=== PATIENT | male | born 1960 | race Caucasian/White ===

== ENCOUNTER 2025-05-21 16:37 | Emergency (ER) | payer OTHER ==
[~2025-05-21] VITALS: Ht 172.7 cm; Wt 86.2 kg
[2025-05-21 16:43] VITALS: BP 142/87; RESP 18; TEMP 97.7; O2SAT 94
--- NOTE | 2025-05-21 17:04 | ED.PDOC ---
HPI Comments 65 y/o M, presents to the ED for CC of chest pain. Patient states, he has been experiencing substernal chest pain that radiates to his bilateral arms onset x2hrs [employer]. Patient describes pain to be "pressure" like in nature. Patient denies nausea, vomiting, dizziness, shortness of breath, or palpitations. No other symptoms or modifying factors are present at this time. Chief Complaint: Chest Pain Time Seen by MD: 17:00 Reviewed Notes: Nurses Notes, Medications, Allergies Allergies: Coded Allergies: NO KNOWN ALLERGIES (Unverified , 05/21/25) Information Source: Patient Mode of Arrival: Ambulatory Severity: Moderate Timing: Hours Duration: Since onset Prehospital treatment: None Location: Substernal Radiation: Arm (R), Arm (L) Quality: Pressure Onset: At Rest Cardiac Risk Factors: None PE Risk Factors: None History of: None Modifying Factors: Nothing Associated Signs and Symptoms: None Past Medical History PAST MEDICAL HISTORY: Denies Surgical History: Denies all surgeries Family History Family History: Unknown Social History Smoker: Non-Smoker Alcohol: Denies ETOH Use Drugs: Denies Drug Use Lives In: Home Constitutional: denies: chills, diaphoresis, fatigue, fever, malaise, sweats, weakness, others EENTM: denies: blurred vision, double vision, ear bleeding, ear discharge, ear drainage, ear pain, ear ringing, eye pain, eye redness, hearing loss, mouth pa in, mouth swelling, nasal discharge, nose bleeding, nose congestion, nose pain, photophobia, tearing, throat pain, throat swelling, voice changes, others Respiratory: denies: cough, hemoptysis, orthopnea, SOB at rest, shortness of breath, SOB with excertion, stridor, wheezing, others Cardiovascular: reports: chest pain; denies: dizzy spells, diaphoresis, Dyspnea on exertion, edema, irregular heart beat, left arm pain, lightheadedness, palpitations, PND, syncope, others Gastrointestinal: denies: abdomen distended, abdominal pain, blood streaked bow els, constipated, diarrhea, dysphagia, difficulty swallowing, hematemesis, melena, nausea, poor appetite, poor fluid intake, rectal bleeding, rectal pain, vomiting, others Genitourinary: denies: burning, dysuria, flank pain, frequency, hematuria, incontinence, penile discharge, penile sore, pain, testicle pain, testicle swelling, urgency, others Neurological: denies: dizziness, fainting, headache, left sided numbness, left sided weakness, numbness, paresthesia, pre-existing deficit, right sided numbness, right sided weakness, seizure, speech problems, tingling, tremors, weakness, others Musculoskeletal: denies: back pain, gout, joint pain, joint swelling, muscle pain, muscle stiffness, neck pain, others Integumetry: denies: bruises, change in color, change in hair/nails, dryness, laceration, lesions, lumps, rash, wounds, others Allergic/Immunocompromised: denies: Difficulty Healing, Frequent Infections, Hives, Itching, others Hematologic/Lymphatic: denies: anemia, blood clots, easy bleeding, easy bruising, swollen glands, others Endocrine: denies: excessive hunger, excessive sweating, excessive thirst, excessive urination, flushing, intolerance to cold, intolerance to heat, unexplained weight gain, unexplained weight loss, others Psychiatric: denies: anxiety, bipolar disorder, depression, hopeless, panic disorder, schizophrenia, sleepless, suicidal, others All Other Systems: Reviewed and Negative Physical Exam General Appearance: No Apparent Distress, Normal HEENT: Normal ENT Inspection, Pharynx Normal Neck: Full Range of Motion, Non-Tender, Normal, Normal Inspection Respiratory: Chest Non-Tender, Lungs Clear, No Accessory Muscle Use, No Respiratory Distress, Normal Breath Sounds Cardiovascular: No Edema, No Murmur, No Gallop, Normal Peripheral Pulses, Regular Rate/Rhythm Breast Exam: Deferred Gastrointestinal: No Organomegaly, Non Tender, No Pulsatile Mass, Normal Bowel Sounds, Soft Genitalia: Deferred Pelvic: Deferred Rectal: Deferred Extremities: No calf tenderness, Normal capillary refill, Normal inspection, Normal range of motion, Non-tender, No pedal edema Musculoskeletal : Apperance: Normal Neurologic: Alert, 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 Was a procedure done?: No CP Differential Dx Differential Diagnosis: Angina Differential Diagnosis: Chest Wall Pain, Costochondritis, Esophageal reflux/spasm, Gastritis X-Ray, Labs, Meds, VS Vital Signs Date Time Temp Pulse Resp B/P (MAP) Pulse Ox O2 Delivery O2 Flow Rate FiO2 05/21/25 17:58 96 05/21/25 17:26 70 05/21/25 16:44 96 05/21/25 16:43 97.7 91 18 142/87 94 97.7 Lab Test 05/21/25 18:10 05/21/25 16:57 Range/Units Troponin I High Sensitivity Pending 31 </=54 ng/L White Blood Count 7.1 4.4-10.8 10^3/uL Red Blood Count 5.48 4.5-5.90 10^6/uL Hemoglobin 16.0 13.5-17.5 g/dL Hematocrit 47.1 41.0-53.0 % Mean Corpuscular Volume 85.9 80.0-100.0 fL Mean Corpuscular Hemoglobin 29.2 28.0-32.0 pg Mean Corpuscular Hemoglobin Concent 34.0 32.0-36.0 g/dL Red Cell Distribution Width 13.9 11.8-14.3 % Platelet Count 278 140-450 10^3/uL Mean Platelet Volume 7.8 6.9-10.8 fL Neutrophils (%) (Auto) 48.0 37.0-80.0 % Lymphocytes (%) (Auto) 40.4 10.0-50.0 % Monocytes (%) (Auto) 9.1 0.0-12.0 % Eosinophils (%) (Auto) 1.7 0.0-7.0 % Basophils (%) (Auto) 0.8 0.0-2.0 % Neutrophils # (Auto) 3.4 1.6-8.6 10 ^3/uL Lymphocytes # (Auto) 2.9 0.4-5.4 10 ^3/uL Monocytes # (Auto) 0.6 0-1.3 10 ^3/uL Eosinophils # (Auto) 0.1 0-0.8 10 ^3/uL Basophils # (Auto) 0.1 0-0.2 10 ^3/uL Nucleated Red Blood Cells 0.1 % Sodium Level 138 136-145 mmol/L Potassium Level 3.8 3.5-5.1 mmol/L Chloride Level 104 98-107 mmol/L Carbon Dioxide Level 24 20-31 mmol/L Anion Gap 10 5-15 Blood Urea Nitrogen 14 9-23 mg/dL Creatinine 1.20 0.700-1.30 mg/dL Glomerular Filtration Rate Calc 68 >90 mL/min BUN/Creatinine Ratio 11.7 10.0-20.0 Serum Glucose 217 H 74-106 mg/dL Calcium Level 9.6 8.7-10.4 mg/dL Time of 1ST Reevaluation: 17:30 Reevaluation 1ST: Unchanged Patient Education/Counseling: Diagnosis, Treatment Family Education/Counseling: No Family Present Additional Information High Complexity Problems Acute illness posing threat to life or bodily function (suspected ACS) High Complexity Data Multiple unique labs Independent interpretation of X-ray and EKG Discussion/coordination of care with admitting team High Risk of Morbidity/Mortality Decision regarding hospitalization Critical care performed Potential for sudden deterioration MEDICAL DECISION MAKING (HIGH COMPLEXITY LEVEL 5): The patient presents with acute chest pain highly concerning for acute coronary syndrome (ACS), an acute illness with potential for significant morbidity and mortality. Despite a normal initial diagnostic workup, ACSincluding unstable anginacannot be excluded and remains the leading concern. Data Reviewed / Independent Interpretation: I independently reviewed and interpreted all labs and imaging. CBC and BMP were within normal limits. High-sensitivity troponin was normal, but a single normal value does not exclude ACS. Chest X-ray was independently reviewed by me and demonstrated no acute cardiopulmonary abnormalities. I independently reviewed the EKG, which showed normal sinus rhythm without ischemic changes. Despite these benign findings, the patient continues to describe exertional and pressure-like chest pain radiating in a pattern consistent with possible ACS. Unstable angina may present with normal biomarkers and nondiagnostic EKGs, and therefore this diagnosis remains a high-risk, active consideration. Differential Diagnosis & Management: The differential included ACS/unstable angina, pulmonary embolism, aortic dissection, pneumothorax, arrhythmia, and esophageal or musculoskeletal etiologies. Given the symptom pattern and cardiac risk profile, ACS remains the most concerning and cannot be safely ruled out in the ED. Serial troponins, telemetry monitoring, and further cardiac evaluationincluding possible stress testing or cardiology consultationare medically necessary. Risk / Disposition: Due to the ongoing concern for evolving cardiac ischemia, the inability to exclude ACS at this stage, and the potential for rapid deterioration, I d etermined that inpatient admission is required for continued monitoring and further diagnostic evaluation. I discussed the case and plan of care with the admitting inpatient team. The patient understands and agrees with admission. CRITICAL CARE TIME: 38 MINUTES A total of 38 minutes of critical care time was provided, exclusive of separately billable procedures. Time was spent in high-intensity evaluation and management due to the risk of sudden clinical deterioration from suspected ACS. Activities included: Continuous cardiac monitoring Serial reassessment of vital signs and symptoms Independent interpretation of EKG and imaging Review and integration of diagnostic data Coordination of care and discussion with nursing and the admitting service Development of treatment and monitoring plan Frequent bedside reassessments Critical care services were medically necessary due to the immediate potential for life-threatening cardiac ischemia. SEPSIS Sepsis Screen Date sepsis recognized/suspect: May 21, 2025 Time Sepsis recognized/suspect: 1644 Recent Procedure: No On Antibiotic Therapy: No Respiratory Rate >20: No Heart Rate >90: Yes Temp<36 C (96.8 F) or >38.3 C: No SBP <90 or MAP <65 mmHG: No New Acute Mental Status Change: No Is the patient on CPAP, BIPAP,: No Physician Orders Troponin-I Hs (05/21/25 17:41) Troponin-I Hs (05/21/25 19:41) Electrocardigram (05/21/25 16:41) Electrocardigram (05/21/25 17:41) Electrocardigram (05/21/25 19:41) Chest Portable (05/21/25 16:52) Vital Signs Date Time Temp Pulse Resp B/P (MAP) Pulse Ox O2 Delivery O2 Flow Rate FiO2 05/21/25 17:58 96 05/21/25 17:26 70 05/21/25 16:44 96 05/21/25 16:43 97.7 91 18 142/87 94 97.7 Laboratory Tests Test 05/21/25 16:57 White Blood Count 7.1 10^3/uL (4.4-10.8) Departure 1 Departure Time of Disposition: 18:51 Impression: Primary Impression: Acute chest pain Disposition: 09 ADMITTED INPATIENT Admit to: [facility] Condition: Guarded Critical Care Note Critical Care Time?: No Stability Stability form required: No Heart Score Heart Score: Heart Score Response (Comments) Value History N/A 0 EKG N/A 0 Age N/A 0 Risk Factors N/A 0 Troponin N/A 0 Total 0 I personally scribed for ANTOINE PICKARD MD ([email or web address]) on 05/21/25 at 17:04. Electronically submitted by Tiffany Neal ([email or web address]). I personally scribed for ANTOINE PICKARD MD ([email or web address]) on 05/21/25 at 17:11. Electronically submitted by Tiffany Neal ([email or web address]). I personally scribed for ANTOINE PICKARD MD ([email or web address]) on 05/21/25 at 17:58. Electronically submitted by Tiffany Neal ([email or web address]). ANTOINE PICKARD MD May 21, 2025 17:04
[2025-05-21 17:22] LABS: Hematocrit 47.1 % (41.0-53.0); Hemoglobin 16.0 g/dL (13.5-17.5); Mean Corpuscular Hemoglobin 29.2 pg (28.0-32.0); Mean Corpuscular Volume 85.9 fL (80.0-100.0); Nucleated Red Blood Cells % 0.1 %
[2025-05-21 17:28] LABS: Chloride 104 mmol/L (98-107); Potassium 3.8 mmol/L (3.5-5.1); Sodium 138 mmol/L (136-145)
[2025-05-21 17:29] LABS: Anion Gap 10 (5-15); Calcium 9.6 mg/dL (8.7-10.4); Carbon Dioxide 24 mmol/L (20-31)
[2025-05-21 17:34] LABS: BUN/Creatinine Ratio 11.7 (10.0-20.0); Blood Urea Nitrogen 14 mg/dL (9-23)
[2025-05-21 17:35] LABS: Glucose 217 mg/dL (74-106)
[2025-05-21 17:58] VITALS: PULSE 96
--- NOTE | 2025-05-21 18:35 | DVH ---
CHEST RADIOGRAPH INDICATION: CHEST PAIN TECHNIQUE: Single frontal view of the chest was obtained COMPARISON: None FINDINGS: Lines and Tubes: None. Lungs: Clear. Pleura: No pleural effusion or pneumothorax. Cardiomediastinal contours: Unremarkable IMPRESSION: No abnormality demonstrated.
[2025-05-21] MEDS ORDERED: SODIUM CHLORIDE 0.9% 1,000 ML IV SCH (21:45)
[2025-05-21] MEDS ORDERED: ACETAMINOPHEN 325 MG TAB PO PRN (21:45)
[2025-05-21] MEDS ORDERED: ONDANSETRON HCL 4 MG/2 ML VIAL IV PRN (21:45)
[2025-05-21] MEDS ORDERED: DOCUSATE SOD 100 MG CAP PO PRN (21:45)
[2025-05-21] MEDS ORDERED: HYDROcodone-ACET 5/325MG TAB PO PRN (21:45)
[2025-05-21] MEDS ORDERED: ATORVASTATIN 20 MG TAB PO SCH ×2 (22:00)
--- NOTE | 2025-05-21 22:42 | DVHHP2 ---
History of Present Illness Reason for Visit: Acute chest pain Review of Systems Allergies: Coded Allergies: NO KNOWN ALLERGIES (Unverified , 05/21/25) Medications Current Medications Medications Dose Ordered Sig/Lala Route Start Time Stop Time Status Last Admin Dose Admin Aspirin 81 mg DAILY PO 05/22/25 10:00 Atorvastatin Calcium 20 mg HS PO 05/21/25 22:00 Sodium Chloride 1,000 ml @ 60 mls/hr [id number] IV 05/21/25 21:45 Acetaminophen/ Hydrocodone Bitart 1 tab Q4HP PRN PO 05/21/25 21:45 Ondansetron HCl 4 mg Q4HP PRN IV 05/21/25 21:45 Docusate Sodium 100 mg BIDPRN PRN PO 05/21/25 21:45 Acetaminophen 650 mg Q6HP PRN PO 05/21/25 21:45 Exam Vital Signs Vital Signs Date Time Temp Pulse Resp B/P (MAP) Pulse Ox O2 Delivery O2 Flow Rate FiO2 05/21/25 17:58 96 05/21/25 16:43 97.7 18 142/87 94 97.7 Labs/Xrays Labs Test 05/21/25 19:40 05/21/25 16:57 Range/Units Troponin I High Sensitivity 116 *H </=54 ng/L White Blood Count 7.1 4.4-10.8 10^3/uL Red Blood Count 5.48 4.5-5.90 10^6/uL Hemoglobin 16.0 13.5-17.5 g/dL Hematocrit 47.1 41.0-53.0 % Mean Corpuscular Volume 85.9 80.0-100.0 fL Mean Corpuscular Hemoglobin 29.2 28.0-32.0 pg Mean Corpuscular Hemoglobin Concent 34.0 32.0-36.0 g/dL Red Cell Distribution Width 13.9 11.8-14.3 % Platelet Count 278 140-450 10^3/uL Mean Platelet Volume 7.8 6.9-10.8 fL Neutrophils (%) (Auto) 48.0 37.0-80.0 % Lymphocytes (%) (Auto) 40.4 10.0-50.0 % Monocytes (%) (Auto) 9.1 0.0-12.0 % Eosinophils (%) (Auto) 1.7 0.0-7.0 % Basophils (%) (Auto) 0.8 0.0-2.0 % Neutrophils # (Auto) 3.4 1.6-8.6 10 ^3/uL Lymphocytes # (Auto) 2.9 0.4-5.4 10 ^3/uL Monocytes # (Auto) 0.6 0-1.3 10 ^3/uL Eosinophils # (Auto) 0.1 0-0.8 10 ^3/uL Basophils # (Auto) 0.1 0-0.2 10 ^3/uL Nucleated Red Blood Cells 0.1 % Sodium Level 138 136-145 mmol/L Potassium Level 3.8 3.5-5.1 mmol/L Chloride Level 104 98-107 mmol/L Carbon Dioxide Level 24 20-31 mmol/L Anion Gap 10 5-15 Blood Urea Nitrogen 14 9-23 mg/dL Creatinine 1.20 0.700-1.30 mg/dL Glomerular Filtration Rate Calc 68 >90 mL/min BUN/Creatinine Ratio 11.7 10.0-20.0 Serum Glucose 217 H 74-106 mg/dL Calcium Level 9.6 8.7-10.4 mg/dL SEPSIS Sepsis Screen Date sepsis recognized/suspect: May 21, 2025 Time Sepsis recognized/suspect: 1644 Recent Procedure: No On Antibiotic Therapy: No Respiratory Rate >20: No Heart Rate >90: Yes Temp<36 C (96.8 F) or >38.3 C: No SBP <90 or MAP <65 mmHG: No New Acute Mental Status Change: No Is the patient on CPAP, BIPAP,: No Physician Orders Electrocardigram (05/21/25 16:41) Electrocardigram (05/21/25 17:41) Electrocardigram (05/21/25 19:41) Chest Portable (05/21/25 16:52) Aspirin Chewable Tablet (05/22/25 10:00) Atorvastatin (Lipitor) (05/21/25 22:00) Hemoglobin A1c (05/21/25 21:34) Troponin-I Hs (05/21/25 22:34) Troponin-I Hs (05/22/25 00:34) * Cardiology Consult (05/21/25 21:34) Allergies (05/21/25 21:34) Code Status (05/21/25 21:34) Sodium Chloride 0.9% (05/21/25 21:45) Oxygen Per Hour (05/21/25 21:34) Hydrocodone-Acet 5/325mg Tab ([place] 5/32 (05/21/25 21:45) Ondansetron Hcl (Zofran) (05/21/25 21:45) Docusate Sodium Capsule (Colace Capsule) (05/21/25 21:45) Complete Blood Count (05/22/25 04:00) Comprehensive Metabolic Panel (05/22/25 04:00) Cardiac Diet-2gna,Lofat,Lochol (05/22/25 Breakfast) Condition: Serious (05/21/25 21:34) Acetaminophen Tablet (Tylenol Tablet) (05/21/25 21:45) Bedrest With Bathroom Privileg (05/21/25 21:34) Maintain Bed Rest (05/21/25 21:34) Sequential Compression Device (05/21/25 ) Vital Signs Date Time Temp Pulse Resp B/P (MAP) Pulse Ox O2 Delivery O2 Flow Rate FiO2 05/21/25 17:58 96 05/21/25 17:26 70 05/21/25 16:44 96 05/21/25 16:43 97.7 91 18 142/87 94 97.7 Laboratory Tests Test 05/21/25 16:57 White Blood Count 7.1 10^3/uL (4.4-10.8) Assessment/Plan My Orders Orders - SUSANA COHEN DNP Procedure Category Date Status Time Aspirin Chewable PHA 05/22/25 In Process Tablet 10:00 Atorvastatin (Lipitor) PHA 05/21/25 In Process 22:00 Hemoglobin A1c LAB 05/21/25 In Process 21:34 Troponin-I Hs LAB 05/21/25 Logged 22:34 Troponin-I Hs LAB 05/22/25 Verified 00:34 * Cardiology Consult CONS 05/21/25 Transmitted 21:34 Allergies PRAVEENA 05/21/25 In Process 21:34 Code Status CODE 05/21/25 Transmitted 21:34 Sodium Chloride 0.9% PHA 05/21/25 In Process 21:45 Oxygen Per Hour RT 05/21/25 Transmitted 21:34 Hydrocodone-Acet PHA 05/21/25 In Process 5/325mg Tab ([place] 21:45 Ondansetron Hcl PHA 05/21/25 In Process (Zofran) 21:45 Docusate Sodium PHA 05/21/25 In Process Capsule (Colace 21:45 Complete Blood Count LAB 05/22/25 Verified 04:00 Comprehensive LAB 05/22/25 Verified Metabolic Panel 04:00 Cardiac DIET 05/22/25 Transmitted Diet-2gna,Lofat,Lochol Breakfast Condition: Serious PRAVEENA 05/21/25 In Process 21:34 Acetaminophen Tablet PHA 05/21/25 In Process (Tylenol Tablet) 21:45 Bedrest With Bathroom PRAVEENA 05/21/25 In Process Privileg 21:34 Maintain Bed Rest PRAVEENA 05/21/25 In Process 21:34 Sequential PRAVEENA 05/21/25 In Process Compression Device SUSANA COHEN DNP May 21, 2025 22:41
[2025-05-21] MEDS ORDERED: MORPHINE SULFATE INJ 2 MG/ml SYRG IV PRN (22:45)
[2025-05-21] MEDS ORDERED: NITROGLYCERIN 0.4 MG SL TAB SL PRN (22:45)
--- NOTE | 2025-05-22 09:46 | ECG ---
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
--- NOTE | 2025-05-22 09:46 | ECG ---
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
== END 2025-05-21 22:41 | disposition home or self-care (01) ==
LOC: ER 16:37 → OVERFLOW 22:40 → UNDOADMIN 22:40 → OVERFLOW 22:41 → UNDODISIN 23:22
DX: R07.89 Other chest pain (principal); R73.09 Other abnormal glucose; M79.602 Pain in left arm; M79.601 Pain in right arm
CPT/HCPCS: 36415; 71045; 80048; 83036; 84484; 85025; 93005; G0378